=== PATIENT | male | born 1945 ===

== ENCOUNTER → 2023-05-25 14:47 | Outpatient (BNVA) | payer MEDICARE, BC, SELFPAY | PROVIDERS: Family Provider Family Medicine; PCP Nurse Practitioner Family; Referring Provider Nurse Practitioner Family; Visit Provider Internal Medicine Cardiovascular Disease | DX: R07.9 Chest pain, unspecified (principal); I45.10 Unspecified right bundle-branch block; I25.10 Atherosclerotic heart disease of native coronary artery without angina pectoris; I50.9 Heart failure, unspecified; I71.43 Infrarenal abdominal aortic aneurysm, without rupture; J44.9 Chronic obstructive pulmonary disease, unspecified; I44.0 Atrioventricular block, first degree; I45.19 Other right bundle-branch block | CPT/HCPCS: 93005; 99204 ==

== ENCOUNTER 2023-06-03 10:13 | Outpatient (CLI) | payer MEDICARE, BC, SELFPAY ==
--- NOTE | 2023-06-03 14:00 | USCV_ITS ---
Marko Nael Age: 77 Gender: M : 1945 Exam Date: 06/03/2023 10:30 Ordering Phys: Abilio Honeycutt MD ([email or web address]) Technologist: SHIRLEY [place] [facility] [place] CHRONIC HEART FAILURE BP: 130 / 88 HR: 60 Rhythm: Sinus Technical Quality: Adequate MEASUREMENTS (Male / Female) Normal Values 2D ECHO LV Diastolic Diameter PLAX 5.1 cm 4.2 - 5.9 / 3.9 - 5.3 cm IVS Diastolic Thickness 1.4 cm 0.6 - 1.0 / 0.6 - 0.9 cm IVS Systolic Thickness 2.3 cm LVPW Diastolic Thickness 2.5 cm 0.6 - 1.0 / 0.6 - 0.9 cm LVPW Systolic Thickness 3.3 cm LVOT Diameter 2.0 cm LV Ejection Fraction 2D Teich 60.9 % LV Ejection Fraction MOD 2C 57.0 % LV Ejection Fraction 2C AL 58.7 % LA Diameter 3.0 cm RA Systolic Volume 4C AL 22.7 ml RA Systolic Volume 4C MOD 21.4 ml Aorta at Sinotubular Diameter 2.6 cm IVC Diameter 1.9 cm M-MODE LA Ao Ratio MM 1.6 AV Cusp Separation MM 1.8 cm DOPPLER AV Peak Velocity 171.3 cm/s LVOT Peak Velocity 102.0 cm/s AV Area Cont Eq vti 2.3 cm squared AV Area Cont Eq pk 1.9 cm squared MV Peak Velocity 113.0 cm/s MV Area PHT 2.9 cm squared Mitral E to A Ratio 0.7 TR Peak Velocity 166.0 cm/s TR Peak Gradient 11.0 mmHg TR Mean Velocity 124.0 cm/s TR Mean Gradient 6.8 mmHg TR Velocity Time Integral 41.8 cm TV Peak E Velocity 51.0 cm/s Right Atrial Pressure 3.0 mmHg Pulmonary Artery Systolic Pressu 14.0 mmHg PV Peak Velocity 134.0 cm/s RV Ejection Time 0.4 s FINDINGS Left Ventricle Normal left ventricular size and systolic function, EF 61%. No regional wall motion abnormalities. Moderate left ventricular hypertrophy. Grade I/IV diastolic dysfunction (abnormal relaxation filling pattern), normal to mildly elevated filling pressures. Right Ventricle The right ventricle is normal in size and function. Right Atrium The right atrium is normal in size. Left Atrium The left atrium is normal in size. Mitral Valve No gross abnormalities noted Aortic Valve Thickened aortic valve. Aortic valve sclerosis. Tricuspid Valve Trace tricuspid valve regurgitation. Pulmonic Valve Mild pulmonary valve regurgitation. Pericardium Normal pericardium without effusion. Aorta Normal ascending aorta dimension. IVC Normal inferior vena cava. CONCLUSIONS Normal left ventricular size and systolic function, EF 61%. No regional wall motion abnormalities. Moderate left ventricular hypertrophy. Grade I/IV diastolic dysfunction (abnormal relaxation filling pattern), normal to mildly elevated filling pressures. Aortic valve sclerosis. Trace tricuspid valve regurgitation. Estimated pulmonary artery peak systolic pressure within normal limits There is no pericardial effusion. Technically difficult study because of the poor ultrasonic window. Dr Abilio Honeycutt MD [facility] (Electronically Signed) Final Date: 09 June 2023 21:02 S
== END 2023-06-03 11:51 | disposition home or self-care (01) ==
LOC: CDL 10:14
PROVIDERS: Family Provider Family Medicine; PCP Nurse Practitioner Family; Visit Provider Internal Medicine Cardiovascular Disease
DX: I50.9 Heart failure, unspecified (principal); I25.10 Atherosclerotic heart disease of native coronary artery without angina pectoris; I51.7 Cardiomegaly; I35.8 Other nonrheumatic aortic valve disorders
CPT/HCPCS: 93306

== ENCOUNTER 2023-06-22 09:25 | Outpatient (CLI) | payer MEDICARE, BC, SELFPAY ==
--- NOTE | 2023-06-22 | ECG_ITS ---
[facility] Test Date: 2023-06-22 Pat Name: Nael Zhu Department: Room: Gender: Male [employer] Aide: : 1945 Requested By: Abilio Honeycutt Order Number: [id number] Laura MD: Abilio Honeycutt M.D. Interpretive Statements NAME OF STUDY: LEXISCAN SESTAMIBI STRESS TEST INDICATION: CHF, PROCEDURE: At the baseline, the EKG revealed normal sinus rhythm with a first-degree AV block. The baseline heart was 70 bpm with a blood pressue of 127/70 mm of Hg Lexiscan was infused over a period of 20 seconds. A total of 0.4 milligrams of Lexiscan was infused. The stress phase was continued for a total of 5 minutes. Heart rate at the end of the stress phase was 75 bpm with a blood pressure 123/69 mm of Hg. The EKG at the peak infusion revealed no significant changes. Sestamibi was injected 20 seconds after the Lexiscan infusion. Heart rate at the end of the recovery phase was 73 bpm with a blood pressure of 126/73 mm of Hg. CONCLUSION: 1. No significant EKG changes with the LexiScan infusion 2. No LexiScan induced chest pain or cardiac arrhythmia 3. Normal blood pressure and heart rate response 4. Sestamibi/sestamibi perfusion scan pending; see separate report. Electronically Signed On 07-04-2023 9:02:56 CDT by Abilio Honeycutt M.D. [email or web address]
--- NOTE | 2023-06-22 09:33 | NMCV_ITS ---
NM robert perf SPECT r/s* [id number] Nael Zhu Age: 77 Gender: M : 1945 Exam Date: 06/22/2023 10:18 Ordering Phys: Abilio Honeycutt MD ([email or web address]) Technologist: MICHAEL Fernandez Exam Location: [facility] Indications: CORONARY ANGIOPLASTY STATUS STRESS TEST [facility] IMAGE PROTOCOL Rest/Stress 1 Lexiscan Day Radiopharmaceutical Dose (mCi) Administration Site Administered by Rest: Tc-99m 10.5 IV MICHAEL Bailey Sestamibi Stress:Tc-99m 32.9 IV MICHAEL Bailey Sestamibi Rest: 22-Jun-2023 60 Discovery 630 Stress: 22-Jun-2023 30 Discovery 630 0.4mg Lexiscan. Supine position only as patient was unable to lay prone. SPECT RESULTS Technical Quality: Excellent Raw Data Analysis: Normal Image Corrections: No attenuation or motion correction applied Summed Stress Score: 10 Summed Rest Score: 6 Summed Difference Score: 5 PERFUSION FINDINGS Moderate area of moderate to severely decreased tracer uptake involving the basal and mid inferolateral, mid inferior, mid anterolateral and apical lateral regions with some reversibility in the inferolateral, mid anterior and apical lateral regions. FUNCTIONAL RESULTS (calculated via Gated SPECT) Stress Image LV EF (%): 60 Stress EDV (mL):105 TID: 0.91 Stress ESV (mL):42 FUNCTIONAL FINDINGS: Segmental wall motion analysis revealing no gross wall motion abnormalities IMPRESSIONS 1. Myocardial perfusion imaging revealing moderate area of moderate to severely decreased tracer uptake involving the inferolateral, anterolateral, inferior and apical lateral regions with reversibility in the inferolateral, anterolateral and apical lateral regions suggesting myocardial scarring with ischemia in the distribution of the left circumflex artery, predominantly with some involvement of the right coronary artery. 2. Normal LV ejection fraction of 60%. 3. LV wall motion analysis revealing no gross wall motion abnormalities. 4. LV volume, upper limit of normal. No similar previous studies are available for comparison Dr Abilio Honeycutt MD [facility] (Electronically Signed) Final Date: 22 June 2023 18:54 S
[2023-06-22 10:20] VITALS: BMI 36.0
[2023-06-22] MEDS: regadenoson 0.4 Mg/5 ml Syringe 0.400000000000000022 MG IVP (11:02)
[2023-06-22 11:13] VITALS: BP 123/69; PULSE 77
== END 2023-06-22 09:26 | disposition home or self-care (01) ==
LOC: CDL 09:27
PROVIDERS: Family Provider Family Medicine; PCP Nurse Practitioner Family; Visit Provider Internal Medicine Cardiovascular Disease
DX: Z98.61 Coronary angioplasty status (principal)
CPT/HCPCS: 36415; 78452; 93017; 96374; A9500; J2785

== ENCOUNTER → 2023-07-12 09:33 | Outpatient (BNVA) | payer MEDICARE, BC, SELFPAY | PROVIDERS: Family Provider Family Medicine; PCP Nurse Practitioner Family; Visit Provider Nurse Practitioner Family | DX: R94.39 Abnormal result of other cardiovascular function study (principal); I71.43 Infrarenal abdominal aortic aneurysm, without rupture; Z87.891 Personal history of nicotine dependence | CPT/HCPCS: 99214 ==